=== PATIENT | female | born 1940 | race Caucasian/White ===

== ENCOUNTER → 2016-06-29 | Emergency (ER) | payer MEDICARE, OTHER ==
[~2016-06-29] VITALS: Ht 160 cm; Wt 56.3 kg
[~2016-06-29] MED LIST: ACET500C5 PO; ACETAMINOPHEN 500 MG TAB PO STA
[2016-06-29 20:53] VITALS: Ht 160 cm; Wt 56.3 kg
[2016-06-29 22:36] LABS: ADD SCAN DIFF NO
[2016-06-29 22:46] LABS: BASOPHILS % 0.4 % (0.0-2.0); EOSINOPHILS # 0.3 10^3/ul (0.0-0.5); EOSINOPHILS % 3.4 % (0.0-7.0); HEMATOCRIT 42.2 % (37.0-47.0); HEMOGLOBIN 14.2 g/dl (12.0-16.0); LYMPHOCYTES # 1.9 10^3/ul (0.8-2.9); LYMPHOCYTES % 23.2 % (15.0-51.0); MEAN CORPUSCULAR HGB CONC 33.6 g/dl (32.0-37.0); MEAN CORPUSCULAR VOLUME 89.2 fl (82.0-101.0); MEAN PLATELET VOLUME 11.3 fl (7.4-10.4); MONOCYTE # 0.5 10^3/ul (0.3-0.9); MONOCYTES % 6.7 % (0.0-11.0); NEUTROPHIL # 5.3 10^3/ul (1.6-7.5); NEUTROPHILS % 66.1 % (39.0-77.0); PLATELET COUNT 172 10^3/UL (140-415); RED BLOOD COUNT 4.73 10^6/ul (4.20-5.40); RED CELL DISTRIBUTION WIDTH 12.7 % (11.5-14.5); WHITE BLOOD COUNT 8.1 10^3/ul (4.8-10.8)
[2016-06-29 22:49] LABS: ALBUMIN 4.3 g/dl (3.3-4.9)
[2016-06-29 22:50] LABS: POTASSIUM 4.5 mmol/L (3.5-5.1)
[2016-06-29 22:52] LABS: ALBUMIN/GLOBULIN RATIO 1.38; BILIRUBIN,INDIRECT 0.2 mg/dl (0-1.1); BILIRUBIN,TOTAL 0.2 mg/dl (0.2-1.3); CREATININE 0.68 mg/dl (0.44-1.00); TOTAL PROTEIN 7.4 g/dl (6.1-8.1)
[2016-06-29 22:53] LABS: CALCIUM 9.9 mg/dl (8.4-10.2)
--- NOTE | 2016-06-29 22:54 | RADRPT ---
PROCEDURE: XR Knee. CLINICAL INDICATION: Post traumatic left knee pain after a fall TECHNIQUE: AP, lateral and tunnel views of the left knee were obtained. COMPARISON: None. FINDINGS: No fracture or osseous lesion is identified. There is no evidence for dislocation. Mineralization is decreased. Medial joint space narrowing with osteophytes consistent with osteoarthrosis. No leila dence of effusion or soft tissue swelling is identified. Extensive atherosclerotic calcification is present RPTAT:HJJR IMPRESSION: 1. Demineralization and osteoarthrosis without acute post traumatic abnormality of the left knee. 2. Atherosclerotic calcification. Physician Smita Date Time Electronically viewed and signed by Physician Smita on 06/29/2016 22:54 /
--- NOTE | 2016-06-29 23:30 | RADRPT ---
PROCEDURE: CT BRAIN WITHOUT CONTRAST CLINICAL INDICATION: 76-year-old female with trauma. TECHNIQUE: The study was performed utilizing GE SAIC VCT 64-slice CT scanner. Direct axial sections were obtained from the foramen magnum to the vertex without the use of intravenous contrast material. Sagittal and coronal reformations were obtained. Automated exposure control and iterative reconstruction techniques were utilized for this examination. The images were viewed on a PACS wor kstation. CTD/vol = 44.2 mGy; Total Exam DLP = 773.6 mGy-cm. COMPARISON: None. FINDINGS: There is fatv-ev-szoaqbqz degree of diffuse cortical and central atrophy with compensatory ventricul ar enlargement. There is no evidence for mass effect or midline shift. There are periventricular a nd deep white matter areas of decreased density consistent with microangiopathic ischemic changes. There is no evidence for acute intra or extra-axial blood. There is subtle focal encephalomalacia wi thin the left occipital lobe seen best on axial image 2-15. Calcifications are seen within the intr acranial carotid and vertebral arteries bilaterally. The bony calvarium is intact. There is mild muc osal thickening within the partially visualized ethmoid air cells. The mastoid air cells are withou t significant soft tissue. IMPRESSION: 1. Arzd-vv-phfrxvtr diffuse atrophy. 2. Microangiopathic ischemic changes. 3. Left occipital encephalomalacia which may be due to prior trauma or infarct. 4. Vascular calcifications. 5. Mild mucosal thickening partially visualized ethmoid air cells. .Carlin Denton MD, MD Date Time Electronically viewed and signed by .Carlin Denton MD, MD on 06/29/2016 23:30 .M/
--- NOTE | 2016-06-29 23:42 | RADRPT ---
PROCEDURE: CT FACIAL BONES WITHOUT CONTRAST CLINICAL INDICATION: 76-year-old female with trauma. TECHNIQUE: The study was performed utilizing a GE [employer]ed VCT 64-slice CT scanner. Direct axia l sections were obtained through the facial bones without the use of intravenous contrast material. Sagittal and coronal re-formations were obtained. Automated exposure control and iterative reconstr uction techniques were utilized for this examination. The images were reviewed on a PACS workstatio n. CTD/vol = 35.6 mGy; Total Exam DLP = 620.2 mGy-cm. COMPARISON: Pain concurrently. FINDINGS: There is a nondisplaced right nasal bone fracture. The globes are intact. There are no intra- or ex tra-conal masses. The right maxillary sinus is atretic with diffuse mucoperiosteal thickening and o pacification. There is a defect within the right anterior wall presumably from prior Gamez Ryley p rocedure. There is periodontal disease within the right upper second molar. The third molar is abse nt and presumably extracted. There is mild mucosal thickening within the ethmoid air cells bilateral ly. The ostiomeatal units are patent but narrow bilaterally. There is leftward nasal septal deviat ion. There is flattening of the left mandibular condylar head and narrowing of the temporomandibular joint. Bilateral carotid bifurcation region calcifications are noted. Cervical spondylosis is seen within the partially visualized upper cervical spine. IMPRESSION: 1. Nondisplaced right nasal bone fracture. 2. 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 3. Mild mucosal thickening ethmoid air cells. 4. Periodontal disease involving the right upper second molar. 5. Leftward nasal septal deviation. 6. Degenerative changes within the left temporomandibular joint. 7. Carotid bifurcation region calcifications. 8. Cervical spondylosis. .Carlin Denton MD, Date Time Electronically viewed and signed by .Carlin Denton MD, on 06/29/2016 23:42 .Shell/
[2016-06-30 00:02] LABS: INR 1.06; PROTIME 13.8 Sec (12.2-14.2); PT RATIO 1.1
[2016-06-30 00:53] VITALS: BP 132/63; PULSE 65; RESP 18; TEMP 97.9
--- NOTE | 2016-06-30 03:33 | ERD ---
ER Documentation Chief Complaint Date/Time DATE: 06/30/16 TIME: 03:27 Chief Complaint sp ground level fall, facial pain , nasal bleeding-controlled HPI 76-year-old female with a past medical history of status post bypass heart surgery, bradycardia presents to the ED complaining of a mechanical fall that occurred earlier today at 6 PM. States that she was walking at the sidewalk and accidentally tripped and fell and slid forward. States that she hit the front of her forehead and nose. States that she had some epistaxis and slight bleeding in her mouth. Denies losing any teeth. Reports that she also has slight left knee pain from the fall. States that the bleeding stopped and sustained itself. States that she does have slight anterior forehead pain. Denies any abdominal pain, nausea, vomiting, chest pain, weakness, dizziness. States that she is taking Xarelto, aspirin, simvastatin, metoprolol, alendronate sodium. ROS All systems reviewed and are negative except as per history of present illness. Medications Home Meds Active Scripts Acetaminophen* (Tylophen*) 500 Mg Capsule, 1 CAP PO Q6H Y for PAIN AND OR ELEVATED TEMP, #20 CAP Prov:APRIL BRASHER PA-C 06/30/16 Allergies Allergies: Coded Allergies: cortisone (Verified Allergy, Unknown, 06/29/16) PMhx/Soc History of Surgery: Yes (L CLAVICLE FX 2014, GALLBLADDER SX) Anesthesia Reaction: No Hx Neurological Disorder: No Hx Respiratory Disorders: No Hx Cardiac Disorders: Yes (HIGH CHOLESTEROL, PACEMAKER) Hx Psychiatric Problems: No Hx Miscellaneous Medical Probl: Yes (DM2) Hx Alcohol Use: No Hx Substance Use: No Hx Tobacco Use: No Smoking Status: Never smoker Physical Exam Vitals Vital Signs Date Time Temp Pulse Resp B/P Pulse Ox O2 Delivery O2 Flow Rate FiO2 06/30/16 00:53 97.9 65 18 132/63 96 Room Air 06/29/16 20:53 97.7 92 20 174/90 98 Physical Exam Const: Mlz-knf-pvdihtafx, well-nourished. In no acute distress. Head: Atraumatic, normocephalic Eyes: Normal Conjunctiva without injection. No purulent discharge. PERRLA. EOMI ENT: Normal external ear. Ear canal without erythema. Tympanic membrane pearly arteaga without effusion or bulging. Nasal canal clear with normal turbinates. Slight exterior nasal edema. Moist oropharynx without tonsillar exudates. Non- erythematous pharynx. Uvula midline. No drooling. No trismus. Neck: No cervical midline tenderness. Full range of motion. No meningismus. No cervical lymphadenopathy. No JVD. Resp: Clear to auscultation bilaterally. No wheezing, rhonchi, rales, or crackles. No accessory muscle use. No retractions. Cardio: Regular rate and rhythm. No murmurs, rubs or gallops. Abd: Soft, non tender, non distended. Normal bowel sounds. No palpable masses. No rebound tenderness. No guarding. Negative McBurney's Point. Negative Trinidad's Sign. Skin: Normal skin turgor. No petechiae or rashes Back: No midline tenderness. No CVA tenderness. Ext: No cyanosis, or edema. Distal pulses intact bilaterally. Neur: Awake and alert. Normal gait. Normal coordination. Cranial Nerves II- VII intact. Normal finger to nose. Muscle strength 5/5. Sensation intact. Psych: Normal Mood and Affect Result Diagram: 06/29/16221706/29/162217 Results 24 hrs Laboratory Tests Test 06/29/16 22:18 06/29/16 23:35 Alanine Aminotransferase (ALT/SGPT) 32IU/L Albumin 4.3g/dl Albumin/Globulin Ratio 1.38 Alkaline Phosphatase 74IU/L Anion Gap 17 Aspartate Amino Transf (AST/SGOT) 21IU/L Basophils # 0.010^3/ul Basophils % 0.4% Blood Urea Nitrogen 15mg/dl Calcium Level 9.9mg/dl Carbon Dioxide Level 31mmol/L Chloride Level 104mmol/L Creatinine 0.68mg/dl Direct Bilirubin 0.00mg/dl Eosinophils # 0.310^3/ul Eosinophils % 3.4% Globulin 3.10g/dl Glucose Level 106mg/dl Hematocrit 42.2% Hemoglobin 14.2g/dl Indirect Bilirubin 0.2mg/dl Lymphocytes # 1.910^3/ul Lymphocytes % 23.2% Mean Corpuscular Hemoglobin 30.0pg Mean Corpuscular Hemoglobin Concent 33.6g/dl Mean Corpuscular Volume 89.2fl Mean Platelet Volume 11.3fl Monocytes # 0.510^3/ul Monocytes % 6.7% Neutrophils # 5.310^3/ul Neutrophils % 66.1% Nucleated Red Blood Cells # 0.010^3/ul Nucleated Red Blood Cells % 0.0/100WBC Platelet Count 78111^3/UL Potassium Level 4.5mmol/L Red Blood Count 4.7310^6/ul Red Cell Distribution Width 12.7% Sodium Level 147mmol/L Total Bilirubin 0.2mg/dl Total Protein 7.4g/dl White Blood Count 8.110^3/ul Activated Partial Thromboplast Time 26.0Sec INR International Normalized Ratio 1.06 Prothrombin Time 13.8Sec Prothrombin Time Ratio 1.1 Current Medications Medications (Trade) Dose Ordered Sig/Alec Route PRN Reason Start Time Stop Time Status Last Admin Dose Admin Acetaminophen (Tylenol Tab) 500 mg ONCE STAT PO 06/29/16 21:54 06/29/16 22:02 DC 06/29/16 22:22 Procedures/MDM This is a 76-year-old female with no significant past medical history presents to the ED complaining of a mechanical fall that occurred earlier today. Patient is afebrile and nontoxic-appearing. Patient spends pressure was noted to be 174/90. Patient's blood pressure was elevated (>120/80) but appears stable without evidence of hypertension emergency or urgency. The patient was counseled about the risks of hypertension and urged to pursue outpatient monitoring and therapy within a week with their primary care physician. Low suspicion for end organ damage. Patient at this time was further evaluated with a CBC, CMP, PT, PTT, CT of the brain without contrast, CT of the facial bones, left knee x-ray. A left knee x-ray was ordered to further evaluate patient. CBC: No leukocytosis. No e/o of systemic infection. No e/o anemia. CMP: No e/o severe acidosis, alkalosis, renal failure, diabetic ketoacidosis, liver disease Urine: No leukocyte esterase, no nitrites, no hematuria. PROCEDURE: CT FACIAL BONES WITHOUT CONTRAST CLINICAL INDICATION: 76-year-old female with trauma. TECHNIQUE: The study was performed utilizing a [employer] 64-slice CT scanner. Direct axial sections were obtained through the facial bones without the use of intravenous contrast material. Sagittal and coronal re-formations were obtained. Automated exposure control and iterative reconstruction techniques were utilized for this examination. The images were reviewed on a PACS workstation. CTD/vol = 35.6 mGy; Total Exam DLP = 620.2 mGy-cm. COMPARISON: Pain concurrently. FINDINGS: There is a nondisplaced right nasal bone fracture. The globes are intact. There are no intra- or extra-conal masses. The right maxillary sinus is atretic with diffuse mucoperiosteal thickening and opacification. There is a defect within the right anterior wall presumably from prior Gamez Ryley procedure. There is periodontal disease within the right upper second molar. The third molar is absent and presumably extracted. There is mild mucosal thickening within the ethmoid air cells bilaterally. The ostiomeatal units are patent but narrow bilaterally. There is leftward nasal septal deviation. There is flattening of the left mandibular condylar head and narrowing of the temporomandibular joint. Bilateral carotid bifurcation region calcifications are noted. Cervical spondylosis is seen within the partially visualized upper cervical spine. IMPRESSION: 1. Nondisplaced right nasal bone fracture. 2. 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 3. Mild mucosal thickening ethmoid air cells. 4. Periodontal disease involving the right upper second molar. 5. Leftward nasal septal deviation. 6. Degenerative changes within the left temporomandibular joint. 7. Carotid bifurcation region calcifications. 8. Cervical spondylosis. PROCEDURE: XR Knee. CLINICAL INDICATION: Post traumatic left knee pain after a fall TECHNIQUE: AP, lateral and tunnel views of the left knee were obtained. COMPARISON: None. FINDINGS: No fracture or osseous lesion is identified. There is no evidence for dislocation. Mineralization is decreased. Medial joint space narrowing with osteophytes consistent with osteoarthrosis. No evidence of effusion or soft tissue swelling is identified. Extensive atherosclerotic calcification is present RPTAT:HJJR IMPRESSION: 1. Demineralization and osteoarthrosis without acute post traumatic abnormality of the left knee. 2. Atherosclerotic calcification. PROCEDURE: CT BRAIN WITHOUT CONTRAST CLINICAL INDICATION: 76-year-old female with trauma. TECHNIQUE: The study was performed utilizing [employer] 64-slice CT scanner. Direct axial sections were obtained from the foramen magnum to the vertex without the use of intravenous contrast material. Sagittal and coronal reformations were obtained. Automated exposure control and iterative reconstruction techniques were utilized for this examination. The images were viewed on a PACS workstation. CTD/vol = 44.2 mGy; Total Exam DLP = 773.6 mGy-cm. COMPARISON: None. FINDINGS: There is ieyu-ci-qmndpyjp degree of diffuse cortical and central atrophy with compensatory ventricular enlargement. There is no evidence for mass effect or midline shift. There are periventricular and deep white matter areas of decreased density consistent with microangiopathic ischemic changes. There is no evidence for acute intra or extra-axial blood. There is subtle focal encephalomalacia within the left occipital lobe seen best on axial image 2-15. Calcifications are seen within the intracranial carotid and vertebral arteries bilaterally. The bony calvarium is intact. There is mild mucosal thickening within the partially visualized ethmoid air cells. The mastoid air cells are without significant soft tissue. IMPRESSION: 1. Dtxq-vc-baporsid diffuse atrophy. 2. Microangiopathic ischemic changes. 3. Left occipital encephalomalacia which may be due to prior trauma or infarct. 4. Vascular calcifications. 5. Mild mucosal thickening partially visualized ethmoid air cells. Patient sustained a nondisplaced nasal fracture. Low suspicion for acute myocardial infarction, pneumothorax, pnuemonia, cardiac tamponade, pulmonary embolism, pleural effusion, AAA, aortic dissection, Boerhaave's syndrome, cardiac dysrhythmias,meningitis, intracranial bleed, seizure, stroke, TIA or other emergent conditions. Patient is placed in a left knee Ramón wrap. Splint Assessment: Neurovascularly intact with Ramón wrap placement with good fit. Patient is ambulating here in the ED without difficulty. Patient's extremity symptoms have stabilized while they have been evaluated in the department and are appropriate for outpatient follow up. No evidence of fractures, dislocations , compartment syndrome, neurologic injury, vascular injury, open joint, open fracture, tendon laceration, septic arthritis, osteomyelitis, DVT, foreign body , or other emergent conditions. Discharge medications: Tylenol Follow up with primary care physician in 1-2 days. Instructed patient to return to the ED sooner for any worsening symptoms. Patient's questions were answered. Patient understood and agreed with discharge plan. Patient discharged stable. Departure Diagnosis: Primary Impression: Nasal bone fracture Encounter type: initial encounter Fracture type: closed Qualified Code: S02.2XXA - Closed fracture of nasal bone, initial encounter Additional Impression: Fall Encounter type: initial encounter Qualified Code: W19.XXXA - Fall, initial encounter Condition: Stable Patient Instructions: Fall, Mechanical, Fracture, Nose (With X-Ray), Fall Prevention Referrals: [facility] YOU HAVE RECEIVED A MEDICAL SCREENING EXAM AND THE RESULTS INDICATE THAT YOU DO NOT HAVE A CONDITION THAT REQUIRES URGENT TREATMENT IN THE EMERGENCY DEPARTMENT. FURTHER EVALUATION AND TREATMENT OF YOUR CONDITION CAN WAIT UNTIL YOU ARE SEEN IN YOUR DOCTORS OFFICE WITHIN THE NEXT 1-2 DAYS. IT IS YOUR RESPONSIBILITY TO MAKE AN APPOINTMENT FOR FOLOW-UP CARE. IF YOU HAVE A PRIMARY DOCTOR --you should call your primary doctor and schedule an appointment IF YOU DO NOT HAVE A PRIMARY DOCTOR YOU CAN CALL OUR PHYSICIAN REFERRAL HOTLINE AT IF YOU CAN NOT AFFORD TO SEE A PHYSICIAN YOU CAN CHOSE FROM THE FOLLOWING [facility] [address] [facility]. [facility] [address] [facility]. [facility] [address] [facility] [address] [facility]. [facility] [address] [facility]. [facility] [address] [facility]. [facility] YOU HAVE RECEIVED A MEDICAL SCREENING EXAM AND THE RESULTS INDICATE THAT YOU DO NOT HAVE A CONDITION THAT REQUIRES URGENT TREATMENT IN THE EMERGENCY DEPARTMENT. FURTHER EVALUATION AND TREATMENT OF YOUR CONDITION CAN WAIT UNTIL YOU ARE SEEN IN YOUR DOCTORS OFFICE WITHIN THE NEXT 1-2 DAYS. IT IS YOUR RESPONSIBILITY TO MAKE AN APPOINTMENT FOR FOLOW-UP CARE. IF YOU HAVE A PRIMARY DOCTOR --you should call your primary doctor and schedule and appointment IF YOU DO NOT HAVE A PRIMARY DOCTOR YOU CAN CALL OUR PHYSICIAN REFERRAL HOTLINE AT . IF YOU CAN NOT AFFORD TO SEE A PHYSICIAN YOU CAN CHOSE FROM THE FOLLOWING [facility] INSTITUTIONS: [facility] [address] [place] [address] [facility] [address] [place] [address] [facility] [address] [place] [address] [facility] URGENT CARE/SPECIALTIES Additional Instructions: Visite a ratliff mdico maana para un EXAMEN para abbie referencia a especialista en o dos nariz garganta y neurlogo. Regrese a estas instalaciones si no se mejora floresita esperbamos o floresita le dijimos. APRIL BRASHER PA-C Jun 30, 2016 03:33
== END | disposition home or self-care (01) ==
LOC: FTE 20:50
DX: S02.2XXA Fracture of nasal bones, initial encounter for closed fracture (principal); E11.9 Type 2 diabetes mellitus without complications; W01.198A Fall on same level from slipping, tripping and stumbling with subsequent striking against other object, initial encounter; Y92.9 Unspecified place or not applicable; Z79.82 Long term (current) use of aspirin; Z95.0 Presence of cardiac pacemaker
CPT/HCPCS: 36415; 70450; 70486; 73562; 80053; 85025; 85610; 85730